=== PATIENT | female | born 1995 | race Caucasian/White ===

== ENCOUNTER → 2021-05-12 | Outpatient (CLI) | payer BC, OTHER ==
[~2021-05-12] MED LIST: NITR100CA PO
[2021-05-14 00:07] LABS: CHLAMYDIA TRACHOMATIS, NAA Negative (Negative)
== END | disposition home or self-care (01) ==
LOC: LAB 13:52 → LAB SHORT 13:52
PROVIDERS: Obstetrics & Gynecology
DX: Z01.419 Encounter for gynecological examination (general) (routine) without abnormal findings (principal); Z11.3 Encounter for screening for infections with a predominantly sexual mode of transmission
CPT/HCPCS: 87491; 87591; G0123

== ENCOUNTER → 2021-06-11 | Outpatient (CLI) | payer OTHER | END | disposition home or self-care (01) | LOC: LAB SHORT 13:31 → LAB 13:31 | DX: R30.9 Painful micturition, unspecified (principal) | CPT/HCPCS: 87077; 87086; 87186 ==

== ENCOUNTER → 2021-07-24 | Outpatient (CLI) | payer OTHER ==
[2021-07-24 14:37] LABS: Source, Urine Voided
[2021-07-24 16:00] LABS: Appearance, Urine Hazy (Clear); Bilirubin, Urine Neg (Neg); Blood, Urine 3+ (Neg); Color, Urine Yellow (P-Yellow); Glucose Qualitative, Urine Neg (Neg); Ketones, Urine Neg (Neg); Leukocyte Esterase, Urine 1+ (Neg); Nitrite, Urine Neg (Neg); Protein, Urine 1+ (Neg); Urobilinogen, Urine NORM (Normal)
[2021-07-24 16:18] LABS: Bacteria Mod /hpf; Mucus Light (0-Heavy); Squamous Epithelial Cells Many /hpf (Few)
== END | disposition home or self-care (01) ==
LOC: LAB 14:24 → LAB SHORT 14:24
PROVIDERS: Advanced Practice Midwife
DX: R82.90 Unspecified abnormal findings in urine (principal)
CPT/HCPCS: 81001; 87086

== ENCOUNTER → 2021-09-17 | Outpatient (CLI) | payer OTHER ==
[2021-09-17 18:50] LABS: BASOPHILS ABSOLUTE AUTO 0.02 K/mm3 (0.00-0.23); BASOPHILS PERCENT AUTO 0 % (0-2); EOSINOPHILS ABSOLUTE AUTO 0.12 K/mm3 (0.00-0.68); EOSINOPHILS PERCENT AUTO 1 % (0-6); Hematocrit 33.8 % (33.0-51.0); Hemoglobin 11.4 g/dL (11.5-16.0); IMMATURE GRAN ABSOLUTE AUTO 0.06 K/mm3 (0.00-0.10); IMMATURE GRAN PERCENT AUTO 1 % (0-1); LYMPHOCYTES ABSOLUTE AUTO 1.25 K/mm3 (0.84-5.20); LYMPHOCYTES PERCENT AUTO 14 % (21-46); MONOCYTES ABSOLUTE AUTO 0.56 K/mm3 (0.16-1.47); MONOCYTES PERCENT AUTO 6 % (4-13); Mean Corpuscular HGB 30.7 pg (26.0-34.0); Mean Corpuscular HGB Conc 33.7 g/dL (31.5-36.5); Mean Corpuscular Volume 91 fL (80-100); Mean Platelet Volume 10.4 fL (9.1-12.4); NEUTROPHILS ABSOLUTE AUTO 7.06 K/mm3 (1.96-9.15); NEUTROPHILS PERCENT AUTO 78 % (41-73); Platelet Count 219 K/mm3 (150-400); RDW Coefficient Variation 12.9 % (11.7-14.2); RDW Standard Deviation 41.6 fL (35.1-46.3); Red Blood Cell Count 3.71 M/mm3 (3.80-5.20); White Blood Cell Count 9.07 K/mm3 (4.00-11.30)
== END | disposition home or self-care (01) ==
LOC: LAB SHORT 16:30 → LAB 16:30
PROVIDERS: Obstetrics & Gynecology
DX: Z34.83 Encounter for supervision of other normal pregnancy, third trimester (principal)
CPT/HCPCS: 82950; 85025

== ENCOUNTER → 2021-10-28 | Outpatient (CLI) | payer OTHER | END | disposition home or self-care (01) | LOC: LAB SHORT 11:05 | DX: Z34.83 Encounter for supervision of other normal pregnancy, third trimester (principal) | CPT/HCPCS: 87081; 87150 ==

== ENCOUNTER → 2021-11-11 | Outpatient (CLI) | payer OTHER ==
[2021-11-11 11:24] LABS: Source, Urine Voided
[2021-11-11 13:18] LABS: Appearance, Urine Hazy (Clear); Bilirubin, Urine Neg (Neg); Blood, Urine 1+ (Neg); Color, Urine Yellow (P-Yellow); Glucose Qualitative, Urine Neg (Neg); Ketones, Urine Neg (Neg); Leukocyte Esterase, Urine Neg (Neg); Nitrite, Urine Neg (Neg); Protein, Urine Neg (Neg); Urobilinogen, Urine NORM (Normal); pH, Urine 6.5 (5.0-8.0)
[2021-11-11 13:41] LABS: Bacteria Rare /hpf; Squamous Epithelial Cells Few /hpf (Few); White Blood Cells, Urine 0-2 /hpf (0-5)
== END | disposition home or self-care (01) ==
LOC: LAB SHORT 11:21
PROVIDERS: Advanced Practice Midwife
DX: Z34.83 Encounter for supervision of other normal pregnancy, third trimester (principal)
CPT/HCPCS: 81001

== ENCOUNTER 2021-11-16 05:19 | Inpatient (IN) | payer OTHER ==
[~2021-11-16] VITALS: Ht 165.1 cm; Wt 71.0 kg
[2021-11-16 05:56] LABS: BASOPHILS ABSOLUTE AUTO 0.04 K/mm3 (0.00-0.23); BASOPHILS PERCENT AUTO 1 % (0-2); EOSINOPHILS PERCENT AUTO 1 % (0-6); Hematocrit 36.3 % (33.0-51.0); Hemoglobin 12.1 g/dL (11.5-16.0); IMMATURE GRAN ABSOLUTE AUTO 0.03 K/mm3 (0.00-0.10); IMMATURE GRAN PERCENT AUTO 0 % (0-1); LYMPHOCYTES ABSOLUTE AUTO 1.58 K/mm3 (0.84-5.20); LYMPHOCYTES PERCENT AUTO 21 % (21-46); MONOCYTES ABSOLUTE AUTO 0.63 K/mm3 (0.16-1.47); MONOCYTES PERCENT AUTO 8 % (4-13); Mean Corpuscular HGB 28.9 pg (26.0-34.0); Mean Corpuscular HGB Conc 33.3 g/dL (31.5-36.5); Mean Corpuscular Volume 87 fL (80-100); Mean Platelet Volume 10.3 fL (9.1-12.4); NEUTROPHILS ABSOLUTE AUTO 5.14 K/mm3 (1.96-9.15); NEUTROPHILS PERCENT AUTO 68 % (41-73); Platelet Count 229 K/mm3 (150-400); RDW Coefficient Variation 12.5 % (11.7-14.2); Red Blood Cell Count 4.19 M/mm3 (3.80-5.20); White Blood Cell Count 7.52 K/mm3 (4.00-11.30)
[2021-11-16] MEDS ORDERED: PRENATAL TABLE1 EAC2 PO (06:07)
--- NOTE | 2021-11-16 06:09 | NUR ---
PT REPORTS HX OF DEPRESSION AND TOOK MEDICATIONS FOR IT AT ONE POINT BUT NONE NOW
--- NOTE | 2021-11-16 08:11 | NUR ---
11/16/21 0811 Elizabeth Bell VIABLE MALE INFANT DELIVERED @ 0759. 9/9 APGARS WEIGHING 3180 GRAMS. 7 LBS EVEN. CORD BLOOD SENT WITH BABY RN CONSTANCE DELGADO. NO CORD GASES SENT PER DR MCRAE ORDERS. HEAD 13.75" CHEST 13.75" AND 19 INCHES LONG
[2021-11-17 05:22] LABS: BASOPHILS ABSOLUTE AUTO 0.04 K/mm3 (0.00-0.23); BASOPHILS PERCENT AUTO 0 % (0-2); EOSINOPHILS ABSOLUTE AUTO 0.17 K/mm3 (0.00-0.68); EOSINOPHILS PERCENT AUTO 2 % (0-6); Hematocrit 30.7 % (33.0-51.0); Hemoglobin 10.4 g/dL (11.5-16.0); IMMATURE GRAN ABSOLUTE AUTO 0.03 K/mm3 (0.00-0.10); IMMATURE GRAN PERCENT AUTO 0 % (0-1); LYMPHOCYTES ABSOLUTE AUTO 1.33 K/mm3 (0.84-5.20); LYMPHOCYTES PERCENT AUTO 12 % (21-46); MONOCYTES ABSOLUTE AUTO 0.81 K/mm3 (0.16-1.47); MONOCYTES PERCENT AUTO 8 % (4-13); Mean Corpuscular HGB 29.6 pg (26.0-34.0); Mean Corpuscular HGB Conc 33.9 g/dL (31.5-36.5); Mean Corpuscular Volume 88 fL (80-100); Mean Platelet Volume 10.6 fL (9.1-12.4); NEUTROPHILS ABSOLUTE AUTO 8.31 K/mm3 (1.96-9.15); NEUTROPHILS PERCENT AUTO 78 % (41-73); Platelet Count 173 K/mm3 (150-400); RDW Coefficient Variation 12.7 % (11.7-14.2); RDW Standard Deviation 39.8 fL (35.1-46.3); Red Blood Cell Count 3.51 M/mm3 (3.80-5.20); White Blood Cell Count 10.69 K/mm3 (4.00-11.30)
--- NOTE | 2021-11-17 07:14 | NUR ---
pt would like to go home today, dr tello sent scripts electronically to [facility] in [place], as soon as pt can verify that they have them and they are filled told her we can dc her home, that we also need a dc order on baby. pt reports passing gas, pain currently 3/10 tolerable. vanessa start 24 hour stuff this morning to prepare for dc home
[2021-11-17] MEDS ORDERED: IBUP800 PO (07:20)
[2021-11-17] MEDS ORDERED: Percocet 5-3251 EACH PO (07:20)
--- NOTE | 2021-11-17 07:22 | NUR ---
PT DECLINES FLU VACCINE
--- NOTE | 2021-11-17 10:00 | NUR ---
dc instructions gone over with pt, denies any questions, encouraged to call if has any. 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 pt is aware that she can take tylenol also as needed
--- NOTE | 2021-11-17 10:15 | NUR ---
IV SL DCD, PT STILL WANTS TO GO HOME SOON SHE CAN, HER IS GETTING JESI FILLED THEN THEY WANT TO GO HOME PT IS PASSING GAS, UP AMB IN ROOM, ABLE TO VOID WITH NOT PROBLEMS
--- NOTE | 2021-11-17 11:15 | NUR ---
DC HOME, CHOOSE TO [facility]TE OUT, DENIES ANY PROBLEMS HAS SCRIPT IN HAND
== END 2021-11-17 11:15 | disposition home or self-care (01) | DRG 788 ==
LOC: BC 05:19
PROVIDERS: ADMIT Obstetrics & Gynecology
PROC: 10D00Z1 Extraction of Products of Conception, Low, Open Approach (ICD-10-PCS; principal; 2021-11-16 07:30)
DX: O34.211 Maternal care for low transverse scar from previous cesarean delivery (principal); Z3A.39 39 weeks gestation of pregnancy; Z37.0 Single live birth
CPT/HCPCS: 36415; 85025; 86850; 86900; 86901; A9270; J0690; J1885; J2370; J2405; J2590; J2765; J3010; J7120

== ENCOUNTER → 2025-05-27 | Outpatient (CLI) | payer OTHER ==
[~2025-05-27] MED LIST changes: +IBUP800 PO; +PRENATAL TABLE1 EAC2 PO; +Percocet 5-3251 EACH PO
== END ==
LOC: LAB SHORT 14:25 → LAB 14:25
PROVIDERS: Advanced Practice Midwife
DX: Z01.419 Encounter for gynecological examination (general) (routine) without abnormal findings (principal)
CPT/HCPCS: G0123; G0145

== ENCOUNTER → 2025-06-13 | Outpatient (CLI) | payer OTHER ==
[2025-06-13 13:07] LABS: Source, Urine Voided
[2025-06-13 14:22] LABS: Bilirubin, Urine Neg (Neg); Color, Urine Yellow (P-Yellow); Glucose Qualitative, Urine Neg (Neg); Ketones, Urine Neg (Neg); Leukocyte Esterase, Urine Neg (Neg); Protein, Urine Neg (Neg); Specific Gravity, Urine 1.020 (1.003-1.022); Urobilinogen, Urine NORM (Normal)
[2025-06-13 14:30] LABS: White Blood Cells, Urine 0-2 /hpf (0-5)
[2025-06-13 15:29] LABS: Bacterial Vaginosis PCR Negative (NEGATIVE); Candida glabrata-krusei, PCR NOT DETECTED (NOT DETECT)
[2025-06-13 15:30] LABS: Candida Group, PCR DETECTED (NOT DETECT)
== END ==
LOC: LAB 13:05 → LAB SHORT 13:05
PROVIDERS: Advanced Practice Midwife
DX: R30.0 Dysuria (principal); N76.0 Acute vaginitis
CPT/HCPCS: 81001; 81515

== ENCOUNTER 2025-10-09 05:08 | Inpatient (IN) | payer OTHER ==
--- NOTE | 2025-10-07 14:35 | NUR ---
PT CALLED TO SCHEDULE PRE-OP APPT FOR C/S, PT DECLINED. REVIEWED ARRIVAL TIME AND WHEN TO BE NPO. PT HAD NO QUESTIONS.
[2025-10-09] VITALS (21 sets, daily range): BP systolic 89–145; BP diastolic 53–107
[~2025-10-09] VITALS: Ht 162.6 cm; Wt 71.4 kg
[~2025-10-09 05:08] MED LIST changes: +CeFAZolin Sodium 2,000 MG in NS 100 ML IV SCH
[2025-10-09] MEDS ORDERED: Ondansetron HCl 2 MG / ML 2ML Vial IV PRN ×2 (05:20→09:30)
[2025-10-09] MEDS ORDERED: Methylergonovine Maleate 0.2MG / ML 1ML Amp IM PRN ×2 (05:20→09:35)
[2025-10-09] MEDS ORDERED: Oxytocin 10 Unit / ML Vial IM PRN (05:20)
[2025-10-09] MEDS ORDERED: Carboprost Tromethamine 250 MCG/ML 1ML Amp IM PRN ×2 (05:20→09:30)
[2025-10-09] MEDS ORDERED: Tranexamic Acid 100 ML IV PRN (05:20)
[2025-10-09] MEDS ORDERED: OXYTOCIN/RINGER'S LACTATE 500 ML IV PRN (05:20)
[2025-10-09 05:50] LABS: BASOPHILS ABSOLUTE AUTO 0.02 K/mm3 (0.00-0.23); BASOPHILS PERCENT AUTO 0 % (0-2); EOSINOPHILS ABSOLUTE AUTO 0.17 K/mm3 (0.00-0.68); EOSINOPHILS PERCENT AUTO 2 % (0-6); Hematocrit 32.3 % (33.0-51.0); Hemoglobin 11.0 g/dL (11.5-16.0); IMMATURE GRAN ABSOLUTE AUTO 0.04 K/mm3 (0.00-0.10); IMMATURE GRAN PERCENT AUTO 1 % (0-1); LYMPHOCYTES ABSOLUTE AUTO 1.21 K/mm3 (0.84-5.20); LYMPHOCYTES PERCENT AUTO 14 % (21-46); MONOCYTES ABSOLUTE AUTO 0.65 K/mm3 (0.16-1.47); MONOCYTES PERCENT AUTO 8 % (4-13); Mean Corpuscular HGB Conc 34.1 g/dL (31.5-36.5); Mean Corpuscular Volume 84 fL (80-100); NEUTROPHILS ABSOLUTE AUTO 6.31 K/mm3 (1.96-9.15); NEUTROPHILS PERCENT AUTO 75 % (41-73); NRBC ABSOLUTE 0.00 K/mm3 (0.00-0.02); NRBC Auto 0.0 /100 WBC (0.0-0.2); Platelet Count 222 K/mm3 (150-400); RDW Coefficient Variation 12.8 % (11.7-14.2); RDW Standard Deviation 38.7 fL (35.1-46.3)
[2025-10-09] MEDS ORDERED: Citric Acid/Sodium Citrate 30 ML BTL PO ONE (07:10)
[2025-10-09] MEDS ORDERED: FentaNYL Citrate 50 MCG/ML 2 ML Injection ONE (07:18)
[2025-10-09] MEDS ORDERED: Oxytocin 10 Unit / ML Vial ONE ×3 (07:20)
[2025-10-09] MEDS ORDERED: Dexamethasone Sod Phos 10 MG/ML 1ML VIAL ONE ×2 (07:21→08:50)
[2025-10-09] MEDS ORDERED: Ondansetron HCl 2 MG / ML 2ML Vial ONE (07:21)
[2025-10-09] MEDS ORDERED: ePHEDrine Sulfate 50 MG/ML 1ML Injection IV PRN (07:35)
[2025-10-09] MEDS ORDERED: Ketorolac Tromethamine 15mg Vial IV PRN (07:40)
[2025-10-09] MEDS ORDERED: Phenylephrine HCl 100 MCG/ML-NS 10MLSYR (1MG/10ML) ONE ×2 (07:45→08:21)
[2025-10-09] MEDS ORDERED: Ketorolac Tromethamine 30mg Vial ONE (07:59)
[2025-10-09] MEDS ORDERED: ePHEDrine Sulfate 50 MG/ML 1ML Injection ONE (08:26)
--- NOTE | 2025-10-09 08:31 | NUR ---
10/09/25 0831 Marine Stallings VIABLE FEMALE DELIVERED VIA REPEAT SECTION AT 0805. APGARS 9/9. CORD BLOOD COLLECTED AND GIVEN TO LETY MCKEON FOR TYPE. RIGHT AND LEFT FALLOPIAN TUBES COLLECTED AND PLACED IN SEPARATELY LABLED BAGS FOR PATHO PATIENT HAD A BILATERAL SALPINGECTOMY WITH CESEREAN.
[2025-10-09] MEDS ORDERED: Bupivacaine 0.5% HCl 5 MG/ML 30MLVIAL ONE (08:46)
[2025-10-09] MEDS ORDERED: Bupivacaine HCl 0.25% 30 ML Injection ONE (08:46)
[2025-10-09] MEDS ORDERED: EpiNEPhrine 1 MG/1 ML 1ML Vial ONE (08:50)
[2025-10-09] MEDS ORDERED: Magnesium Hydroxide Conc 10 ML UDC PO PRN (09:25)
[2025-10-09] MEDS ORDERED: OXYTOCIN/RINGER'S LACTATE 500 ML IV SCH (09:30)
[2025-10-09] MEDS ORDERED: Ketorolac Tromethamine 30mg Vial IV SCH (10:00)
[2025-10-10 00:33] VITALS: BP 106/57
[2025-10-10 03:17] VITALS: BP 104/52
[2025-10-10] MEDS ORDERED: Ketorolac Tromethamine 30mg Vial IV PRN (05:35)
[2025-10-10 06:29] LABS: BASOPHILS ABSOLUTE AUTO 0.04 K/mm3 (0.00-0.23); BASOPHILS PERCENT AUTO 0 % (0-2); EOSINOPHILS ABSOLUTE AUTO 0.02 K/mm3 (0.00-0.68); EOSINOPHILS PERCENT AUTO 0 % (0-6); Hematocrit 28.4 % (33.0-51.0); Hemoglobin 9.2 g/dL (11.5-16.0); IMMATURE GRAN ABSOLUTE AUTO 0.07 K/mm3 (0.00-0.10); IMMATURE GRAN PERCENT AUTO 1 % (0-1); LYMPHOCYTES ABSOLUTE AUTO 1.48 K/mm3 (0.84-5.20); LYMPHOCYTES PERCENT AUTO 10 % (21-46); MONOCYTES ABSOLUTE AUTO 1.39 K/mm3 (0.16-1.47); MONOCYTES PERCENT AUTO 9 % (4-13); Mean Corpuscular HGB Conc 32.4 g/dL (31.5-36.5); Mean Corpuscular Volume 87 fL (80-100); NEUTROPHILS ABSOLUTE AUTO 12.43 K/mm3 (1.96-9.15); NEUTROPHILS PERCENT AUTO 81 % (41-73); NRBC ABSOLUTE 0.00 K/mm3 (0.00-0.02); NRBC Auto 0.0 /100 WBC (0.0-0.2); Platelet Count 196 K/mm3 (150-400); RDW Coefficient Variation 13.0 % (11.7-14.2); RDW Standard Deviation 40.5 fL (35.1-46.3)
[2025-10-10 07:53] VITALS: BP 120/57
[2025-10-10] MEDS ORDERED: Prenatal Vit/FE Fumarate/FA 1 Tab PO SCH (09:00)
[2025-10-10 12:53] VITALS: BP 100/58
--- NOTE | 2025-10-10 13:30 | NUR ---
PT DISCHARGING TO HOME. DISCHARGE INSTRUCTIONS GIVEN. NO QUESTIONS OR CONCERNS. TO F/U TOMORROW WITH SUSAN 10/10 @ 1500. CAR SEAT CHECKED. BANDS MATCHED.
== END 2025-10-10 13:40 | disposition home or self-care (01) | DRG 785 ==
LOC: BC 05:15
PROVIDERS: ADMIT Obstetrics & Gynecology
PROC: 10D00Z1 Extraction of Products of Conception, Low, Open Approach (ICD-10-PCS; principal; 2025-10-09 07:30)
PROC: 0UT70ZZ Resection of Bilateral Fallopian Tubes, Open Approach (ICD-10-PCS; 2025-10-09 07:30)
DX: O34.211 Maternal care for low transverse scar from previous cesarean delivery (principal); Z3A.39 39 weeks gestation of pregnancy; Z37.0 Single live birth; O69.81X0 Labor and delivery complicated by cord around neck, without compression, not applicable or unspecified
CPT/HCPCS: 36415; 85025; 86850; 86900; 86901; 86923; 88302; A9270; J0169; J1100; J1885; J2371; J2405; J2590; J3010; J7120